=== PATIENT | female | born 1960 | race Caucasian/White ===

== ENCOUNTER 2016-10-22 05:14 | Observation (INO) | payer OTHER ==
[2016-10-22] VITALS (8 sets, daily range): BP systolic 111–128; BP diastolic 66–84
[~2016-10-22] VITALS: Ht 170.2 cm; Wt 79.4 kg
--- NOTE | ~2016-10-22 | O ---
[facility] [place] [address] OPERATIVE REPORT Name: MALLIKA HERR Room #: 401-I [facility] Omer Simpson#: [id number] Admission: 10/22/16 Attend Phys: Yoav Goldstein MD Discharge: 10/23/16 Date of : 60 Report #: [id number] THIS REPORT FOR: //name// CC: Evie Goldstein DATE OF SERVICE: 10/23/2016 PREOPERATIVE DIAGNOSIS: Cholecystitis with cholelithiasis. POSTOPERATIVE DIAGNOSES: Cholecystitis with cholelithiasis and common bile duct stone on operative cholangiogram. OPERATIVE PROCEDURE PERFORMED: Laparoscopic cholecystectomy with cholangiogram. SURGEON: Yoav Goldstein MD ANESTHESIA: General anesthesia. FINDINGS: The gallbladder is diseased with dilated and elongated cystic duct and small stone defect in the cystic duct. Intraoperative cholangiogram showing what look like 2 common duct stones that are about 3 mm in size. There is scar contraction at the cystic duct, in the cystic duct as described below. DESCRIPTION OF PROCEDURE: Under general anesthesia, the patient underwent urologic procedure with Dr. Solis removing a left kidney stone. The abdomen was then prepped and draped in sterile fashion. The patient received Cipro before the procedure and then also received Ancef prior to the gallbladder surgery. Abdomen was prepped and draped in sterile fashion. Timeout was performed. A 0.25% Marcaine was used to anesthetize the skin infraumbilically. A 2 cm incision was made infraumbilically. Fascia was identified, grasped with hemostat. Fascia was then opened under visualization. A 0 Vicryl suture was placed on the fascia edges. Veress needle was then placed through peritoneum. Abdominal cavity was insufflated with CO2 without difficulty. After creating a pneumoperitoneum pressure of 15, 11 mm trocar was placed into the pneumoperitoneum. No harm to the underlying tissue. The two 5 mm trocars were placed in right upper quadrant, another 5 mm trocar at right epigastrium. The gallbladder was lifted over the liver and there was some adhesion proximally to the gallbladder. There was also adhesion of the fat tissue to the liver adjacent to the gallbladder. The gallbladder was followed and at the end of the gallbladder the tissue was fairly dense and socked in and pulled superiorly. It did not seem to have much of a room between the gallbladder and the liver. The peritoneum over the proximal part of the gallbladder medial and laterally was dissected free; this allowed little more mobilization than following the gallbladder down to the cystic duct. The cystic duct was noted to be quite [address] [address] OPERATIVE REPORT Name: MALLIKA HERR Room #: 401-I [facility] Tatiana#: [id number] Admission: 10/22/16 Attend Phys: Yoav Goldstein MD Discharge: 10/23/16 Date of : 60 Report #: [id number] prominent. The changes here were consistent with chronic gallbladder inflammation and probably passing gallstones. The cystic duct was dissected close to the gallbladder. Because of the scarring, it was difficult to separate the posterior part of the cystic duct. During the dissection, an opening was made in the cystic duct posteriorly. This was fairly close to the bile which seemed to come out of this. Clip was placed in junction of the gallbladder to the cystic duct. The cystic duct was then further dissected off the scarring. This was performed in a blunt manner with laparoscopic peanut. Opening was made in the cystic duct. Cholangiogram catheter was inserted. Due to the large ____ of the cystic duct, the injection did have quite a bit of extravasation. I saw a bit of the common duct and prominent cystic duct, but did not show much of the upper bile ducts. I decided to re-cannulate. The cystic duct was then free further proximally. I could not see the common duct, but common duct was felt to be more medial and posteriorly located. The cystic duct was able to be dissected more proximally and felt that this was dissected safely. I then made another opening in the cystic duct for repeat cholangiogram. This was cannulated without difficulty, was able to get a better seal and the dye was injected. When I first opened the cystic duct up, there were a couple of small pieces of stone that were about 2 mm in size. The second cholangiogram did show quite a bit of enlargement of the cystic duct and the cystic duct also had folds in it. The common duct was visualized and there does appear to be couple of small stones that are about 3 mm in size in the duct. There was no obstruction in the duct. Dye flowed readily into the duodenum. The patient's preop liver function test was also normal. The catheter was then removed. The clip was placed adjacent to the second opening. The cystic duct was divided. Endoloop was also placed proximally. With the amount of further dissection I did perform proximally I am pretty sure the Endoloop was placed proximal to the initial opening in the cystic duct; it was made when I tried to get in the back wall that is described above. No, I do not see any bile coming out. The cystic artery was then found adjacent to this. Again, it was quite scarred around the artery. The artery was clipped x 2 proximally, 1 distally and then divided. Gallbladder was then freed from the liver bed. The gallbladder was placed in a specimen bag, retrieved through the infraumbilical port. Gallbladder was opened off the field and there were multiple stones; couple of stones were about a centimeter in size and there were numerous stones that are 2 to 3 mm. The liver bed was hemostatic. Surgicel was used to apply down the liver bed. Cautery was used for hemostasis. A #19 Mariano drain was then placed in the gallbladder fossa. This was brought out through the lateral trocar. Drain was sutured with 3-0 nylon suture. Dressings were placed around the drain. OpSite was placed. The trocar was then removed with evacuation of CO2 as much as possible. The infraumbilical fascia defect was closed with [id number] 0 Vicryl x 2. The skin was closed with 5-0 PDS to the trocar site. Steri-Strip and Band-Aid was applied to these incisions. The patient was awakened and taken to recovery room. The patient tolerated procedure well. GI consult will be placed. [address] [address] OPERATIVE REPORT Name: MALLIKA HERR Room #: 401-I [facility] Omer Simpson#: [id number] Admission: 10/22/16 Attend Phys: Yoav Goldstein MD Discharge: 10/23/16 Date of : 60 Report #: [id number] The cholangiogram finding of a common duct stone was discussed with her . <ELECTRONICALLY SIGNED> By: Yoav Goldstein MD 12/05/16 1207 0805 1036 Yoav Goldstein MD /edgar
--- NOTE | ~2016-10-22 | H ---
[facility] [place] [address] HISTORY AND PHYSICAL Name: MLALIKA HERR Room #: 401-I [facility] Omer Simpson#: [id number] Admission: 10/22/16 Attend Phys: Yoav Goldstein MD Discharge: 10/23/16 Date of : 60 Report #: [id number] THIS REPORT FOR: //name// CC: Evie Goldstein HISTORY OF PRESENT ILLNESS: The patient is a 56-year-old who is here for laparoscopic cholecystectomy for treatment of symptomatic cholecystitis with cholelithiasis. The patient has been complaining of pain located in the epigastric area. This can be pretty intense and ____ type pain. This lasts for about 15 minutes. She also complains of being hot and sweaty with it. When the pain subsides, she has diarrhea with it, also describes as having severe indigestion. She complains of being gassy and occasionally complaining of burning. The patient had beef cheese sandwich that triggered the episode, it came on about an hour after eating. She also has significant issues with hamburgers and she tries to avoid it. This pain has been going on for about a year. Her symptoms have been increasing. No history of jaundice. Mild nausea, no vomiting. The patient has taken Tums in the past. The patient said that her first episode felt like a heart attack. The patient also has problem with kidney stones and is planning to have the urologist remove her stone, which is on the left side she says. The patient had an ultrasound performed that showed diffuse echogenic shadowing in the gallbladder consistent with multiple gallstones. Question of a stone in the duct. Again, she does not have any problem with jaundice, dark urine or mark color stool. The patient is admitted for surgery. PAST MEDICAL HISTORY: She has history of kidney stones. She had a history of blood clot in 2008, but she is no longer on any anticoagulant. No heart disease, no diabetes. No high blood pressure. No liver disease. No bleeding issue. MEDICATION: Triamterene/HCTZ and potassium. The above medication is for kidney stone prevention. PAST SURGICAL HISTORY: Appendectomy in 1964, laparoscopy and then hysterectomy, laparoscopic 2012, surgery on kidney stone in 2004. ALLERGIES: She is not allergic to anything. FAMILY HISTORY: Father had heart disease. SOCIAL HISTORY: She works as an post office clerk. Does not smoke. Drinks 1-2 drinks per week. REVIEW OF SYSTEMS: The patient called today having some upper respiratory [address] [address] HISTORY AND PHYSICAL Name: MALLIKA HERR Room #: 401-I [facility] Omer Simpson#: [id number] Admission: 10/22/16 Attend Phys: Yoav Goldstein MD Discharge: 10/23/16 Date of : 60 Report #: [id number] congestion. No cough, no fever. I thought she will be okay to proceed with surgery. The patient did not have any chest pain, shortness of breath or palpitation. PHYSICAL EXAMINATION: GENERAL: The patient is alert and oriented. HEENT: Pupils react to light. Sclerae is nonicteric. Oropharynx is clear. NECK: Soft and supple, no masses. LUNGS: Clear to auscultation. HEART: Regular rate and rhythm. No murmur or gallop. ABDOMEN: Does have mild tenderness in the right upper quadrant. No mass, guarding, rigidity, or rebound. EXTREMITIES: No cyanosis, clubbing or edema. IMPRESSION: The patient is a 56-year-old with abdominal pain that is consistent with cholecystitis. Does have certain food that triggers her pain. The patient does have gallstone on ultrasound. The patient is recommended to have a gallbladder removed to treat her symptomatic cholecystitis and cholelithiasis. The patient wanted to see if we can coordinate this with urologist for her kidney stone and the urologist office has been contracted and will have her undergo the urologic stone retrieval procedure same time. The patient understands laparoscopic cholecystectomy, understands the procedure, risk, which includes bleeding, infection, common bile duct injury. The patient wishes to proceed. <ELECTRONICALLY SIGNED> By: Yoav Goldstein MD 12/05/16 1207 [id number] [id number] Yoav Goldstein MD /nt
--- NOTE | ~2016-10-22 | S ---
[facility] [place] [address] SURGICAL PATH RPT PROCEDURE Name: MALLIKA HERR Room #: 401-I [facility] Omer Simpson#: [id number] Admission: 10/22/16 Date of : 60 Discharge: 10/23/16 Report #: [id number] Path Case #: [id number] PATHOLOGY REPORT COLLECTION DATE: 10/22/2016 RECEIVED DATE: 10/22/2016 SUBMITTING PHYS: Dr. Yoav Goldstein OTHER PHYS: Dr Evie Shay SPECIMEN(S) RECEIVED: A.Gallbladder * * * * * * * * * * * * FINAL DIAGNOSIS: Gallbladder, cholecystectomy: - Mild chronic cholecystitis. - Cholelithiasis. (IUV:mgr; d/t: 10/25/16) PATHOLOGIST: Nery Cardenas M.D. REPORT ELECTRONICALLY SIGNED BY: Nery Cardenas M.D. DATE/TIME: 10/25/2016 15:31 * * * * * * * * * * * * GROSS PATHOLOGY: Received in formalin labeled "Mallika Herr gallbladder," is a 6.2 x 2.5 x 1.0 cm, previously opened gallbladder with pink-varghese varghese serosal surfaces. Opening the gallbladder reveals a velvety, red-brown mucosa and an average wall thickness of 0.1 cm. Calculi are present and no masses are noted grossly. Proof Passer sections from the body and fundus are submitted along with the proximal margin in cassette A1. (CAA; 10/22/2016) CLINICAL HISTORY: Cholecystitis, left renal stone INITIAL CPT CODE(S): A; 69644 Professional services performed by [facility] at [facility] [address] , [place] [address] Technical services performed by [facility] at [address] [place] [address] [place] [address] SURGICAL PATH RPT PROCEDURE Name: CARMENZASEKOU Room #: 401-I JOSE Simpson#: [id number] Admission: 10/22/16 Date of : 60 Discharge: 10/23/16 Report #: [id number] Path Case #: [id number] [place] [address]. [facility] [address] [place] [address] PHONE: [phone] DIRECTOR: Xu Garcia M.D. * * * END OF REPORT * * *
--- NOTE | ~2016-10-22 | O ---
[facility] [place] [address] OPERATIVE REPORT Name: MALLIKA HERR Room #: 150-2 [facility] M.R.#: [id number] Admission: 10/22/16 Attend Phys: Yoav Goldstein MD Discharge: Date of : 60 Report #: [id number] THIS REPORT FOR: //name// CC: Evie Goldstein PREOPERATIVE DIAGNOSIS: Left renal calculus. POSTOPERATIVE DIAGNOSIS: Left renal calculus. PROCEDURES PERFORMED: 1. Cystoscopy. 2. Left retrograde pyelogram. 3. Left ureteroscopy with holmium laser lithotripsy and basket stone extraction. 4. Left double-J ureteral stent placement. NARRATIVE OF EVENTS: After proper patient identification and informed consent was obtained, the patient was brought to the operative suite and anesthesia was induced. She was prepped and draped in the usual sterile fashion, in dorsal spinal position. After a surgical timeout, we began with rigid cystoscopy. Her urethra was noted to be very narrow and we had to dilate with sounds in order to place a cystoscope. Once this was in place, we turned our attention to the left ureteral orifice. A sensor wire was advanced into the renal pelvis under fluoroscopy. Of note, she had a cystocele on exam, which did make accessing the greater orifice somewhat challenging. A dual-lumen catheter was then advanced and a retrograde pyelogram performed through this. There was a calcification within the collecting system, consistent with the patient's known stone. There was no significant hydronephrosis on the retrograde pyelogram. A second wire was then advanced followed by 12 x 14 access sheath. We then advanced the flexible ureteroscope. In the mid pole calyx, we identified the patient's known stone. This was fragmented with a laser and all significant fragments were then basketed out. There was some clot within the collecting system at the completion of this case. The scope and access sheaths were withdrawn. The ureter was intact throughout its length. Next, a 6 x 24 double-J ureteral stent was advanced. This was noted to be too small to traverse from the bladder to the renal pelvis, and therefore, we upsized it to a 6 x 26. This was still somewhat short, but we were able to leave it in a good position. The stent was left on a dangle. The patient's bladder was drained. The patient tolerated this portion of the procedure well. Case was then turned over to Dr. Goldstein for his portion. By: 1107 1211 Kristen Shay MD /nt
--- NOTE | ~2016-10-22 | EKG ---
[address] [address] ELECTROCARDIOGRAM REPORT Name: MALLIKA HERR Room #: 150-2 [facility].#: [id number] Admission: 10/22/16 Attend Phys: Yoav Goldstein MD Discharge: Date of : 60 Report #: [id number] THIS REPORT FOR: //name// [facility] Test Date: 2016-10-22 Test Time: 06:42:47 Pat Name: MALLIKA HERR Department: Room: 150 2 Gender: F Economic Development Manager: chato : 1960 Requested By: Josh Eldridge Order Number: [id number] MD: Panda Clayton Measurements Intervals [place] Rate: 90 P: 42 LA: 154 QRS: 7 QRSD: 91 T: 72 QT: 355 QTc: 435 Interpretive Statements Sinus rhythm Minimal ST depression, anterolateral leads No previous ECG available for comparison Electronically Signed On 10-22-2016 9:36:42 [employer] by Panda Clayton [email or web address] <ELECTRONICALLY SIGNED> By: Panda Clayton MD, [facility] 10/22/16 0936 0642 0642 Panda Clayton MD, FACC /EPI
[~2016-10-22 05:14] MED LIST: HYDROCHLOROTHIA50 MG PO; K-DUR 20 MEQ T20 MEQ PO; POTASSIUM CITR15 MEQ PO
[2016-10-22 06:51] LABS: HEMOGLOBIN 14.8 gm/dL (12.0-15.0)
[2016-10-22 07:00] LABS: ANION GAP 10 mmol/L (7-16); BUN 7 mg/dL (7-18); CALCIUM 9.5 mg/dL (8.5-10.1); CHLORIDE 100 mmol/L (98-107); CO2 30 mmol/L (21-32); CREATININE 0.9 mg/dL (0.6-1.3); GLUCOSE 119 mg/dL (70-99); SODIUM 140 mmol/L (136-145)
[2016-10-22 07:05] LABS: POTASSIUM 2.8 mmol/L (3.5-5.1)
[2016-10-22 07:06] LABS: ALBUMIN 4.1 g/dL (3.4-5.0); ALKALINE PHOSPHATASE 72 U/L (46-116); DIRECT BILIRUBIN < 0.1 mg/dL (<0.1-0.3); SGOT 28 U/L (15-37); SGPT 44 U/L (30-65); TOTAL BILIRUBIN 0.4 mg/dL (<0.1-1.0); TOTAL PROTEIN 8.1 g/dL (6.4-8.2)
[2016-10-23 04:38] LABS: HEMATOCRIT 39.2 % (37.0-47.0); HEMOGLOBIN 12.9 gm/dL (12.0-15.0); MCH 28.9 pg (26.0-34.0); MCHC 32.8 % (28.0-37.0); PLATELET COUNT 249 thou/uL (150-400); RBC 4.46 mil/uL (4.20-5.00); RDW 13.8 % (10.5-14.5); WBC 11.4 thou/uL (4.0-11.0)
[2016-10-23 04:49] LABS: MANUAL DIFF YES
[2016-10-23 04:55] LABS: ALBUMIN 3.2 g/dL (3.4-5.0); CALCIUM 8.6 mg/dL (8.5-10.1); CREATININE 0.9 mg/dL (0.6-1.3); POTASSIUM 3.4 mmol/L (3.5-5.1); TOTAL BILIRUBIN 0.3 mg/dL (<0.1-1.0); TOTAL PROTEIN 6.7 g/dL (6.4-8.2)
[2016-10-23 05:39] VITALS: BP 116/69
[2016-10-23 08:00] VITALS: BP 124/78
[2016-10-23 14:08] LABS: ABSOLUTE NEUTROPHILS 9.9 thou/uL (1.4-8.2); TOTAL CELL COUNT 100
[2016-10-23] MEDS ORDERED: IBUPROFEN 600600 M1 PO (15:48)
[2016-10-23] MEDS ORDERED: GUAIFENESIN/COD10 M1 PO (15:49)
[2016-10-23] MEDS ORDERED: MUCINEX TA600 MG/TA1 PO (15:49)
[2016-10-23 16:09] VITALS: BP 124/78
[2016-10-28] MEDS ORDERED: MUCINEX TA600 MG/TA2 PO (16:17)
[2016-10-28] MEDS ORDERED: GUAIFEN-CODEIN120 ML PO (16:18)
[2016-10-28] MEDS ORDERED: HYDROCHLOROTHIA25 M2 PO (16:19)
[2016-10-28] MEDS ORDERED: IBUPROFEN 600600 M1 PO (16:19)
[2016-10-28] MEDS ORDERED: POTASSIUM20 PO (16:20)
[2016-10-28] MEDS ORDERED: UROCIT-K15 MEQ PO (16:20)
== END 2016-10-23 16:37 | disposition home or self-care (01) ==
LOC: TBA 05:14 → OR 05:14 → 4N 13:25 → OR 15:54 → 4N 10-23 16:37
PROVIDERS: Nurse Practitioner Adult Health; Orthopaedic Surgery; Surgery
DX: K80.60 Calculus of gallbladder and bile duct with cholecystitis, unspecified, without obstruction (principal); E87.6 Hypokalemia; Z98.890 Other specified postprocedural states
CPT/HCPCS: 50010; 50101; 50164; 50411; 50478; 50555; 50558; 50612; 50886; 51297; 51489; 51687; 51767; 53307; 53310; 53312; 53331; 53650; 55245; 55317; 56462; 56525; 56526; 56815; 56970; 62110; 62900; 70005

== ENCOUNTER → 2017-12-27 | Outpatient (CLI) | payer OTHER ==
[~2017-12-27] MED LIST changes: +GUAIFEN-CODEIN120 ML PO; +GUAIFENESIN/COD10 M1 PO; +HYDROCHLOROTHIA25 M2 PO; +IBUPROFEN 600600 M1 PO; +MUCINEX TA600 MG/TA1 PO; +MUCINEX TA600 MG/TA2 PO; +POTASSIUM20 PO; +UROCIT-K15 MEQ PO
== END ==
LOC: ULTRA 09:25
DX: R10.13 Epigastric pain (principal); Z90.49 Acquired absence of other specified parts of digestive tract